=== PATIENT | female | born 1965 | race Caucasian/White ===

== ENCOUNTER 2022-07-18 01:58 | Emergency (ER) | payer MEDICAID ==
[~2022-07-18] VITALS: Ht 162.6 cm; Wt 75.3 kg
[2022-07-18 02:03] VITALS: BP 147/96
--- NOTE | 2022-07-18 07:10 | NUR ---
Patient taken to bed 2.
[2022-07-18] MEDS ORDERED: methocarbamoL 500 MG TAB PO STA (07:45)
[2022-07-18] MEDS ORDERED: KETOROLAC 15 MG/ML VIAL IM ONE (07:45)
[2022-07-18] MEDS ORDERED: LIDOCAINE 5% 1 EA PATCH TP ONE (07:45)
[2022-07-18] MEDS ORDERED: KETOROLAC 15 MG/ML VIAL IVP ONE (08:05)
[2022-07-18 08:25] LABS: BASOPHILS % (AUTO) 0.5 % (0.0-2.0); EOSINOPHILS % (AUTO) 0.2 % (0.0-4.0); HEMATOCRIT 35.4 % (36-48); HEMOGLOBIN 11.9 g/dL (12.0-16.0); LYMPHOCYTES # (AUTO) 0.6 K/uL (2.5-16.5); LYMPHOCYTES % (AUTO) 8.6 % (20.5-51.1); MEAN CORPUSCULAR HEMOGLOBIN 30 pg (27-31); MEAN CORPUSCULAR HGB CONC 34 g/dL (33-37); MEAN CORPUSCULAR VOLUME 90.1 fL (80-94); MONOCYTES # (AUTO) 0.3 K/uL (0.8-1.0); MONOCYTES % (AUTO) 4.6 % (1.7-9.3); NEUTROPHILS % (AUTO) 86.1 % (42.2-75.2); PLATELET COUNT (AUTO) 200 K/uL (140-450); RED BLOOD CELL COUNT(AUTO) 3.93 MIL/uL (4.20-5.40); RED CELL DISTRIBUTION WIDTH 13.4 % (11.6-13.7); WHITE BLOOD COUNT (AUTO) 6.9 K/uL (4.8-10.8)
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
[2022-07-18 09:11] LABS: ALBUMIN 4.5 g/dL (3.4-5.0); ANION GAP 14.9 (8-16); ASPARTATE AMINOTRANSFERASE 21 U/L (15-37); CARBON DIOXIDE 24.5 mmol/L (21-32); CHLORIDE 104 mmol/L (98-107); CREATININE 0.8 mg/dL (0.6-1.3); GFR ARICAN-AMERICAN 95 mL/min (>90); GLUCOSE 115 mg/dL (74-106); POTASSIUM 3.4 mmol/L (3.5-5.1); SODIUM SERUM 140 mmol/L (136-145); TOTAL BILIRUBIN 0.3 mg/dL (0.0-1.0); UREA NITROGEN, BLOOD 23 mg/dL (7-18)
[2022-07-18] MEDS ORDERED: LIDOCAINE 5% 1 EA PATCH TP STA (09:30)
[2022-07-18] MEDS ORDERED: ACET-10509 PO (09:35)
[2022-07-18] MEDS ORDERED: LID5T TP (09:35)
[2022-07-18] MEDS ORDERED: METH-1681 PO (09:35)
[2022-07-18 10:13] VITALS: BP 109/61
--- NOTE | 2022-07-18 10:17 | NUR ---
gave order for dc. ACI given and reviewed with pt. cancelled pending lab order. Pt a/o x 4, vss, no ss of acute distress, breathing equal and unlabored, speech clear, IV removed and inspected for patency, steady gait witnessed.
== END 2022-07-18 10:17 | disposition home or self-care (01) ==
LOC: MED 01:58
DX: S20.219A Contusion of unspecified front wall of thorax, initial encounter (principal); Z79.899 Other long term (current) drug therapy; V89.2XXA Person injured in unspecified motor-vehicle accident, traffic, initial encounter; Y93.89 Activity, other specified; Y92.89 Other specified places as the place of occurrence of the external cause; Y99.8 Other external cause status
CPT/HCPCS: 36415; 71045; 80053; 84484; 85025; 93005; 96374; 99285; J1885